=== PATIENT | female | born 2000 | race Caucasian/White ===

== ENCOUNTER → 2019-10-06 | Outpatient (CLI) | payer OTHER ==
--- NOTE | 2019-10-06 16:14 | KCIC ---
EXAM: Right hand, 3 views; right lung, 3 views. HISTORY: Bite. COMPARISON: None. FINDINGS: 3 views the right hand and 3 views of the right long finger are obtained. There is no fracture, dislocation or subluxation. There is no radiodense foreign body. IMPRESSION: No acute osseous finding. Electronically signed by: Mariela Noble MD (10/06/2019 4:11 PM) [id number]
== END ==
LOC: KCIC 15:45
PROVIDERS: ATTEND Family Medicine
DX: M79.644 Pain in right finger(s) (principal)
CPT/HCPCS: 73130; 73140